=== PATIENT | female | born 1990 | race Two or more races ===

== ENCOUNTER 2024-05-22 11:39 | Emergency (ER) | payer OTHER ==
[~2024-05-22] VITALS: Ht 175.3 cm; Wt 127.0 kg
[2024-05-22] MEDS ORDERED: KETOROLAC TROMETHAMINE 60 MG VIAL IM ONE (15:15)
[2024-05-22] MEDS ORDERED: ORPHENADRINE CITRATE 30 MG/ML AMPUL IM ONE (15:15)
[2024-05-22] MEDS ORDERED: DICLOFENAC SODI50 MG PO (17:05)
[2024-05-22] MEDS ORDERED: NORFLEX100MG PO (17:05)
[2024-05-22] MEDS ORDERED: DEXAMETHASONE SODIUM PHOSPHATE 4 MG/ML VIAL IM ONE (17:15)
== END 2024-05-22 19:13 | disposition home or self-care (01) ==
LOC: ER 11:39
DX: M62.838 Other muscle spasm (principal); M94.0 Chondrocostal junction syndrome [Tietze]; Z88.0 Allergy status to penicillin

== ENCOUNTER 2024-06-29 20:13 | Emergency (ER) | payer OTHER ==
[~2024-06-29] VITALS: Ht 172.7 cm; Wt 99.8 kg
[~2024-06-29 20:13] MED LIST: DICLOFENAC SODI50 MG PO; NORFLEX100MG PO
[2024-06-29 21:01] LABS: PH,URINE 5.5 (5.0-8.0); URINE APPEARANCE Clear; URINE BILIRRUBIN Negative (NEGATIVE); URINE BLOOD Small; URINE COLOR Yellow; URINE GLUCOSE Negative (NEGATIVE); URINE KETONE Trace (NEGATIVE); URINE LEUKOCYTE Negative; URINE NITRATE Negative; URINE PROTEIN Trace (NEGATIVE); URINE UROBILINOGEN 0.2 E.U./dl
[2024-06-29 21:02] LABS: URINE BACTERIA 3099.5 uL (0.0-1933); URINE EPITHELIAL CELLS 87.6 uL (0.0-38.8); URINE RBC 19.3 uL (0.0-20.8); URINE WBC 24.5 uL (0.0-23.2)
[2024-06-29 21:03] LABS: URINE CAST 0.15 uL (0.0-1.40)
[2024-06-29] MEDS ORDERED: FLUCONAZOLE150 MG PO (21:10)
== END 2024-06-29 21:25 | disposition home or self-care (01) ==
LOC: ER 20:13
PROVIDERS: General Practice
DX: N76.0 Acute vaginitis (principal); N39.0 Urinary tract infection, site not specified; Z88.0 Allergy status to penicillin

== ENCOUNTER 2024-07-08 09:15 | Emergency (ER) | payer OTHER ==
[~2024-07-08] VITALS: Ht 175.3 cm; Wt 127.0 kg
[~2024-07-08 09:15] MED LIST changes: +FLUCONAZOLE150 MG PO
[2024-07-08] MEDS ORDERED: KETOROLAC TROMETHAMINE 30 MG VIAL IM STA (10:13)
[2024-07-08] MEDS ORDERED: ORPHENADRINE CITRATE 30 MG/ML AMPUL IM STA (10:13)
[2024-07-08] MEDS ORDERED: DEXAMETHASONE SODIUM PHOSPHATE 4 MG/ML VIAL IM STA (10:14)
== END 2024-07-08 10:41 | disposition home or self-care (01) ==
LOC: ER 09:15
DX: M43.6 Torticollis (principal); Z88.0 Allergy status to penicillin

== ENCOUNTER 2024-11-20 16:50 | Emergency (ER) | payer OTHER ==
[~2024-11-20] VITALS: Ht 175.3 cm; Wt 129.3 kg
[2024-11-20 20:50] LABS: COVID-19 AG NEGATIVE (NEGATIVE)
[2024-11-20 21:09] LABS: INFLUENZA A AG NEGATIVE (NEGATIVE)
[2024-11-20] MEDS ORDERED: OSEL75CA PO (21:19)
== END 2024-11-20 22:05 | disposition home or self-care (01) ==
LOC: ER 16:52
DX: B34.9 Viral infection, unspecified (principal); R05.9 Cough, unspecified; Z20.822 Contact with and (suspected) exposure to COVID-19; Z88.0 Allergy status to penicillin